=== PATIENT | male | born 1980 | race Caucasian/White ===

== ENCOUNTER → 2016-10-09 | Outpatient (CLI) | payer MEDICARE, MEDICAID ==
[~2016-10-09] MED LIST: LIDOCAINE PF 1% (XYLOCAINE) 2 ML VIAL INJ ONE; ROPIVACAINE 1% 10 MG/ML (NAROPIN) 10 ML AMPUL ONE; SODIUM CHLORIDE VIAL (PF) 10 ML IV ONE; methylPREDNISolone 80 MG/ML (DEPO MEDROL) VIAL IM ONE
== END ==
LOC: PMC 14:28
PROVIDERS: ATTEND Anesthesiology
DX: M79.1 Myalgia (principal); M54.6 Pain in thoracic spine; Z91.041 Radiographic dye allergy status
CPT/HCPCS: 20552; J1040; J2001; J2795; J7050

== ENCOUNTER 2017-01-25 06:26 | Day surgery (SDC) | payer MEDICARE, MEDICAID ==
[2017-01-25] VITALS (9 sets, daily range): BP systolic 86–145; BP diastolic 47–91
[~2017-01-25] VITALS: Ht 175.3 cm; Wt 132.0 kg
[~2017-01-25 06:26] MED LIST changes: +AMOX500T2 PO; +BUSP15TA75 PO; +CETI-176 PO; +CHOL100045 PO; +CITA40TA5 PO; +DESM0.2T2 PO; +FIBE1TAB4 PO; +HYDR-707 PO; +HYDR5TAB2 PO; +LACTATED RINGERS 1,000 ML IV SCH; +LEVO125T PO; -LIDOCAINE PF 1% (XYLOCAINE) 2 ML VIAL INJ ONE; +MELA5TAB5 PO; +METH40VI33 IJ; +MULT-406 PO; +ORPH100T3 PO; +PANT20TA24 PO; +PRAM0.257 PO; -ROPIVACAINE 1% 10 MG/ML (NAROPIN) 10 ML AMPUL ONE; +SCR1T1 PO; +SODIUM CHLORIDE FLUSH 3 ML SYR IV PRN; -SODIUM CHLORIDE VIAL (PF) 10 ML IV ONE; +TEST100V IM; +[UNRECOGNIZED DRUG - CODE] PO; -methylPREDNISolone 80 MG/ML (DEPO MEDROL) VIAL IM ONE
[2017-01-25] MEDS ORDERED: LIDOCAINE 4% TOPICAL 4.5 ML SYR ONE (06:46)
[2017-01-25] MEDS ORDERED: SIMETHICONE 40 MG/0.6 ML (MYLICON DROPS) ORAL SYRINGE ONE (06:46)
[2017-01-25] MEDS ORDERED: PROPOFOL 20 ML IV ONE (07:13)
[2017-01-25] MEDS ORDERED: MIDAZOLAM 2 MG/2 ML (VERSED) VIAL ONE (07:21)
--- NOTE | 2017-01-25 09:13 | OPERATIVE REPORT ---
DATE OF OPERATION: 01/25/2017 PRE-OPERATIVE DIAGNOSIS: Epigastric abdominal pain POST-OPERATIVE DIAGNOSIS: Mild gastritis OPERATIVE PROCEDURE: Esophagogastroduodenoscopy with biopsies. SURGEON: Allen Young MD ANESTHESIA: Monitored anesthesia care FINDINGS: 1. The gastric mucosa was edematous, particularly in the antrum, where there were several rounded, raised areas with slight erythema. Biopsies were obtained from several of these and PABLITO biopsies were taken as well. The more proximal stomach was less inflamed, but did contain some mucosal edema as well. Biopsies were obtained from the fundus. 2. The duodenum appeared normal, as did the esophagus without any significant ulceration or inflammation. INDICATION: The patient is a 36-year-old referred by Dr. Bush due to persistent epigastric pain that would come and go. Since I saw him in the clinic he has been placed on a PPI and has noticed some relief, but not complete. He presents today for upper endoscopy. DESCRIPTION OF PROCEDURE: The patient was informed of the risks and benefits and agreed to proceed. His oropharynx was anesthetized with Xylocaine and a bite block was placed. Sedation was administered. The lighted endoscope was passed down the esophagus and into the stomach. Air was insufflated. The pylorus was cannulated and the first, second and third portions of the duodenum were visualized. No inflammation was seen except for a focal area that may have been due to scope trauma at the junction of the first and second portions. This did not appear ulcerated chronically, and the rest of the mucosa appeared completely normal. The scope was brought back into the stomach where the antrum, body, fundus were inspected. There were some changes as described above that suggested mild inflammation. Biopsies were obtained. Retroflexion revealed a normal cardia. The diaphragmatic hiatus at approximately 42 cm with the squamocolumnar junction at the same level. There was no irregularity to speak of. The distal and proximal esophagus appeared normal. The scope was removed completing the procedure. The patient tolerated the procedure without complications. We will have him continue the PPI that he is currently taking and I did add Carafate 1 gm t.i.d. for 3 weeks as well. I would like him to follow up with me in 2 weeks to see how he is doing.
== END 2017-01-25 10:48 | disposition home or self-care (01) ==
LOC: ASC 06:26
PROVIDERS: ATTEND Surgery
DX: K29.30 Chronic superficial gastritis without bleeding (principal); E23.0 Hypopituitarism; I10 Essential (primary) hypertension; H54.8 Legal blindness, as defined in USA; E66.9 Obesity, unspecified; Z68.41 Body mass index [BMI] 40.0-44.9, adult; F32.9 Major depressive disorder, single episode, unspecified
CPT/HCPCS: 43239; 88305; 88312; A9270; J2250; J7120